=== PATIENT | female | born 1970 | race Caucasian/White ===

== ENCOUNTER 2023-07-06 14:28 | Emergency (ER) | payer OTHER, SELFPAY ==
--- NOTE | 2023-07-06 14:21 | ECG_ITS ---
APPROVED REPORT Exam: Resting ECG HR:77 bpm ECG Measurements Heart Rate 77 AXES ND 145 P 24 QRSd 77 QRS 5 QT 328 T 7 QTc 360 Conclusion SINUS RHYTHM LOW QRS VOLTAGE IN PRECORDIAL LEADS [QRS DEFLECTION < 1.0 mV IN CHEST LEADS] MINIMAL ST DEPRESSION [0.025+ mV ST DEPRESSION] BORDERLINE ECG UNCONFIRMED REPORT Electronically signed by : Dc Oates MD 07/06/2023 19:56:04
[2023-07-06 14:28] VITALS: BP 147/86; PULSE 78; RESP 19; TEMP 36.4; O2SAT 100; BMI 27.2
[2023-07-06] MEDS: NITROGLYCERIN 0.4MG SL TABLET 0.400000000000000022 MG SL (14:39)
[2023-07-06 14:42] VITALS: BMI 27.2
[2023-07-06 14:43] VITALS: PULSE 100
[2023-07-06] MEDS: ASPIRIN 81MG CHEWABLE TABLET 324 MG PO (14:45)
--- NOTE | 2023-07-06 15:05 | XR_ITS ---
FINAL REPORT TECHNIQUE: Single view chest CLINICAL HISTORY: dyspnea FINDINGS: A single view of the chest was obtained. The heart and mediastinum are within normal limits. The lungs are clear. There is no pneumothorax. Osseous structures are unremarkable. IMPRESSION: No acute cardiopulmonary process. Reviewed, Interpreted and Dictated by Chloe Godoy MD Transcribed by Constanza Morris Authenticated and [facility]
--- NOTE | 2023-07-06 15:06 | ED_ITS ---
Discharge Plan Disposition Patient Disposition: Home, Self-Care Prescriptions Prescriptions: New ondansetron 4 mg tablet,disintegrating 4 mg PO Q6H PRN (Reason: nausea and vomiting) 5 Days Qty: 20 0RF Referrals Follow up/Referrals: Jimenez Gonzalez MD [Staff Physician] - See instructions Provider,MD Grabiel [Primary Care Provider] - See instructions Activity Restrictions/Add. Instructions Additional Instructions/Restrictions: No emergent medical condition identified today please follow-up with Dr. Gonzalez regarding your chronic shortness of breath and chest discomfort. Clinical Impressions Clinical Impression: Chest pain, Nausea vomiting and diarrhea Discharge ED Provider: Mohan Carbone HPI <Gricel Martin MD - Last Filed: 07/06/23 15:53> General Chief Complaint: Chest Pain Stated Complaint: cp Time Seen by Provider: 07/06/23 14:58 Mode of Arrival: Ambulatory Source of Information: Patient Limitations: No Limitations Description of Symptoms (Recalled from ER Triage Doc. by RN): pt presents to ED with c/o chest pain, shortness of air, nausea, vomitting, weakness. pt reports symptoms began thursday morning. History of Present Illness HPI narrative: Patient is a 53-year-old female with no significant past medical problems presenting today with multiple complaints. States that on Thursday she started having nausea vomiting and diarrhea also has been having some chest discomfort this been constant since that time and some shortness of breath. Chest discomfort is described as a squeezing sensation that is been not intermittent and component nonexertional no diaphoresis associated with this no lower extremity swelling no history of DVT or PE no prolonged immobilizations no hemoptysis. The shortness of breath has been very mild and constant. She states this has been ongoing for several months she first noticed this while on vacation recently. No history of any cardiopulmonary disease that she is aware of. No history of smoking no wheezing cough she has had a subjective fever prior to today's evaluation but states that she felt like this went away no objective measurements. Related Data Previous Rx's Medication Instructions Recorded ondansetron 4 mg disintegrating 4 mg PO Q6H PRN nausea and 07/06/23 tablet vomiting 5 days #20 tabs Allergies Allergy/AdvReac Type Severity Reaction Status Date / Time INGREDIENT: NO KNOWN - NO Allergy Unknown Uncoded 04/28/17 15:42 KNOWN DRUG ALLERGY [facility] <Gricel Martin MD - Last Filed: 07/06/23 15:53> [facility] Disclaimer: The information contained in this section may have been updated after the patient was seen, as this information can be updated by other users. Social History (Updated 07/06/23 @ 15:53 by Gricel Martin MD) Smoking Status: Never smoker alcohol intake: never current occupational status: other Travel in the last 8 weeks: None <Gricel Martin MD - Last Filed: 07/06/23 15:53> ROS Obtained: Yes All systems reviewed & no additional complaints except as documented <Mohan Carbone MD - Last Filed: 07/07/23 20:52> As per HPI Physical Exam <Gricel Martin MD - Last Filed: 07/06/23 15:53> General General appearance: alert Respiratory Respiratory exam: Present normal lung sounds bilaterally; Absent respiratory distress Cardiovascular Cardiovascular exam: Present regular rate and normal rhythm Neurological Exam Neurological exam: Present alert and oriented X3 <Mohan Carbone MD - Last Filed: 07/07/23 20:52> Head Head exam: atraumatic and normocephalic Eye Eye exam: Present normal appearance Neck Neck exam: Present normal inspection Chest Chest inspection: Present normal inspection and symmetric chest wall rise Abdominal Exam Abdominal exam: Present soft Psychiatric Psychiatric exam: Present normal affect and normal mood Skin Skin exam: Present warm and dry HEART Score <Gricel Martin MD - Last Filed: 07/06/23 15:53> HEART Score HEART Score assessment performed?: Yes History (anamnesis): Slightly suspicious ECG: Normal Age: 45-65 years Risk factors: No known risk factors Troponin: </= normal limit HEART Score: 1 <Mohan Carbone MD - Last Filed: 07/07/23 20:52> HEART Score HEART Score: 1 Critical Care <Gricel Martin MD - Last Filed: 07/06/23 15:53> Critical Care Time Critical Care Time: No Medical Decision Making <Gricel Martin MD - Last Filed: 07/06/23 15:53> Jeovany Inquiry Pt receiving controlled substance: No Vital Signs Vital Signs: 07/06/23 14:28 07/06/23 14:43 07/06/23 15:59 Temperature 97.6 F 98.0 F Temperature Source Oral Pulse Rate 100 H 80 Pulse Rate [Left Radial] 78 Respiratory Rate 19 15 Blood Pressure 118/85 Blood Pressure [Right Arm] 147/86 H Blood Pressure Mean [Right Arm] 106 02 Sat by Pulse Oximetry 100 Oxygen Delivery Method Room Air Room Air Lab Data Lab results reviewed: Yes I reviewed the patient's lab results. Labs: Lab Results 07/06/23 14:34: WBC 6.8, RBC 4.81, Hgb 15.7, Hct 46.9, MCV 97.5, MCH 32.7 H, MCHC 33.5, RDW 13.1, Plt Count 236, MPV 8.0, Neut % (Auto) 61.4, Lymph % (Auto) 27.4, [place] % (Auto) 9.1, Eos % (Auto) 1.6, Baso % (Auto) 0.6, Neut # (Auto) 4.2, Lymph # (Auto) 1.9, [place] # (Auto) 0.6, Eos # (Auto) 0.1, Baso # (Auto) 0.0, D- Dimer 0.42, Sodium 140, Potassium 3.3 L, Chloride 101, Carbon Dioxide 32 H, Anion Gap 10.3, BUN 13, Creatinine 0.80, Estimated Creat Clear 80, Estimated GFR 76, Est GFR ( Amer) 92, Glucose 110 H, Calcium 9.6, Total Bilirubin 0.9, AST 47 H, ALT 39, Alkaline Phosphatase 99, Troponin I < 0.01, NT-Pro-B Natriuret Pep < 20.0, Total Protein 7.7, Albumin 4.4, Globulin 3.3 H, Albumin/Globulin Ratio 1.3 07/06/23 15:16: SARS-CoV-2 (PCR) Not detected, Influenza A Untype (PCR) Not detected, Influenza Type B (PCR) Not detected 07/06/23 14:34 07/06/23 14:34 Response Orders (Tests/Meds): ED MEDICATIONS Discontinued Medications Generic Name Dose Route Start Last Admin Trade Name Freq PRN Reason Stop Dose Admin Aspirin 324 mg 07/06/23 14:42 07/06/23 14:45 Aspirin 81mg Chewable Tablet PO 07/06/23 14:43 324 mg ONCE ONE Administration Lactated Ringer's 1,000 mls @ 999 mls/hr 07/06/23 15:15 07/06/23 15:11 Lactated Ringer's 1000 Ml Bag IV 07/06/23 16:15 999 mls/hr .Q1H1M GUMARO Administration Nitroglycerin 0.4 mg 07/06/23 14:42 07/06/23 14:39 Nitroglycerin 0.4mg Sl Tablet SL 08/05/23 14:41 0.4 mg Q5MINP PRN Administration Chest Pain Ondansetron HCl 4 mg 07/06/23 15:04 07/06/23 15:11 Ondansetron 4mg/2ml Vial IV 07/06/23 15:05 4 mg ONCE ONE Administration ORDERS Category Date Time Status CXR --portable [XR chest portable] Stat Exams 07/06/23 15:05 Completed BNP [Brain Natriuretic Peptide] Stat Lab 07/06/23 14:34 Completed CBC w/Auto Diff [Complete Blood Count Auto Diff] Stat Lab 07/06/23 14:34 Completed CMP [Comprehensive Metabolic Panel] Stat Lab 07/06/23 14:34 Completed D-Dimer Stat Lab 07/06/23 14:34 Completed Rapid PCR Covid and Flu A/B Stat Lab 07/06/23 15:16 Completed Trop I [Troponin I] Stat Lab 07/06/23 14:34 Completed ECG initial Besson Routine Y 07/06/23 14:21 Completed MDM Narrative Medical Decision Narrative: 53-year-old female with above history heart score is low she is very well on my clinical exam she has multiple complaints including nausea vomiting diarrhea chest pain shortness of breath. Will evaluate for possible cardiopulmonary emergency including acute coronary syndrome PE heart failure etc. will only require single troponin as she has had ongoing unchanged symptoms for several days at this point EKG is also nonischemic. Highly suspect this is not cardiac in nature. She did state after further questioning that she had had multiple episodes of near syncope. Is possible she is having arrhythmia associated with this discomfort we will have her follow-up outpatient for Holter monitor and possible evaluation for structural abnormalities including possibility of getting an echo and/or stress test given her chronic dyspnea and chest discomfort. Lastly with her nausea vomiting diarrhea and subjective fevers this is possible that this is viral in nature will check for COVID and flu give her IV fluids and Zofran and reassess. Chest x-ray performed in person interpreted shows no acute cardiopulmonary emergency Reassessment 3:52 PM labs unremarkable D-dimer below threshold for getting a CT PE troponin undetectably low she does have a mild hypokalemia which will be improved when she is having normal diet again. She was given a prescription of Zofran reassured that no cardiopulmonary emergency was ongoing. She is been advised to follow-up with cardiology for further outpatient testing. Return precautions emphasized she was discharged in improved and stable condition. <Mohan Carbone MD - Last Filed: 07/07/23 20:52> Vital Signs Vital Signs: 07/06/23 14:28 07/06/23 14:43 07/06/23 15:59 Temperature 97.6 F 98.0 F Temperature Source Oral Pulse Rate 100 H 80 Pulse Rate [Left Radial] 78 Respiratory Rate 19 15 Blood Pressure 118/85 Blood Pressure [Right Arm] 147/86 H Blood Pressure Mean [Right Arm] 106 02 Sat by Pulse Oximetry 100 Oxygen Delivery Method Room Air Room Air Lab Data Labs: Lab Results 07/06/23 14:34: WBC 6.8, RBC 4.81, Hgb 15.7, Hct 46.9, MCV 97.5, MCH 32.7 H, MCHC 33.5, RDW 13.1, Plt Count 236, MPV 8.0, Neut % (Auto) 61.4, Lymph % (Auto) 27.4, [place] % (Auto) 9.1, Eos % (Auto) 1.6, Baso % (Auto) 0.6, Neut # (Auto) 4.2, Lymph # (Auto) 1.9, [place] # (Auto) 0.6, Eos # (Auto) 0.1, Baso # (Auto) 0.0, D- Dimer 0.42, Sodium 140, Potassium 3.3 L, Chloride 101, Carbon Dioxide 32 H, Anion Gap 10.3, BUN 13, Creatinine 0.80, Estimated Creat Clear 80, Estimated GFR 76, Est GFR ( Amer) 92, Glucose 110 H, Calcium 9.6, Total Bilirubin 0.9, AST 47 H, ALT 39, Alkaline Phosphatase 99, Troponin I < 0.01, NT-Pro-B Natriuret Pep < 20.0, Total Protein 7.7, Albumin 4.4, Globulin 3.3 H, Albumin/Globulin Ratio 1.3 07/06/23 15:16: SARS-CoV-2 (PCR) Not detected, Influenza A Untype (PCR) Not detected, Influenza Type B (PCR) Not detected Response Orders (Tests/Meds): ED MEDICATIONS Discontinued Medications Generic Name Dose Route Start Last Admin Trade Name Freq PRN Reason Stop Dose Admin Aspirin 324 mg 07/06/23 14:42 07/06/23 14:45 Aspirin 81mg Chewable Tablet PO 07/06/23 14:43 324 mg ONCE ONE Administration Lactated Ringer's 1,000 mls @ 999 mls/hr 07/06/23 15:15 07/06/23 15:11 Lactated Ringer's 1000 Ml Bag IV 07/06/23 16:15 999 mls/hr .Q1H1M GUMARO Administration Nitroglycerin 0.4 mg 07/06/23 14:42 07/06/23 14:39 Nitroglycerin 0.4mg Sl Tablet SL 08/05/23 14:41 0.4 mg Q5MINP PRN Administration Chest Pain Ondansetron HCl 4 mg 07/06/23 15:04 07/06/23 15:11 Ondansetron 4mg/2ml Vial IV 07/06/23 15:05 4 mg ONCE ONE Administration ORDERS Category Date Time Status CXR --portable [XR chest portable] Stat Exams 07/06/23 15:05 Completed BNP [Brain Natriuretic Peptide] Stat Lab 07/06/23 14:34 Completed CBC w/Auto Diff [Complete Blood Count Auto Diff] Stat Lab 07/06/23 14:34 Completed CMP [Comprehensive Metabolic Panel] Stat Lab 07/06/23 14:34 Completed D-Dimer Stat Lab 07/06/23 14:34 Completed Rapid PCR Covid and Flu A/B Stat Lab 07/06/23 15:16 Completed Trop I [Troponin I] Stat Lab 07/06/23 14:34 Completed ECG initial Besson Routine Y 07/06/23 14:21 Completed
[2023-07-06] MEDS: ONDANSETRON 4MG/2ML VIAL 4 MG IV (15:11)
[2023-07-06] MEDS: LACTATED RINGERS 1000ML 1,000 ML 999 ML IV (15:11)
[2023-07-06 15:13] LABS: Basophils % 0.6 % (0.1-2.0); Eosinophils # 0.1 K/mm3 (0.0-0.4); Eosinophils % 1.6 % (0.1-12.0); Hematocrit 46.9 % (37.0-47.0); Hemoglobin 15.7 g/dL (12.2-16.2); Lymphocytes # 1.9 K/mm3 (0.7-4.5); Lymphocytes % 27.4 % (10-50); Mean Corpuscular HGB Conc 33.5 g/dL (31.8-35.4); Mean Corpuscular Hemoglobin 32.7 pg (27.0-31.2); Mean Corpuscular Volume 97.5 fl (81-99); Monocytes # 0.6 K/mm3 (0.1-1.0); Monocytes % 9.1 % (1.7-9.3); Neutrophils # 4.2 K/mm3 (1.8-7.8); Neutrophils % 61.4 % (37.0-80.0); Platelet Count 236 K/mm3 (142-424); Red Blood Count 4.81 M/mm3 (4.20-5.40); Red Cell Distribution Width 13.1 % (11.5-17.5); White Blood Count 6.8 K/mm3 (4.8-10.8)
[2023-07-06 15:16] LABS: Alanine Aminotransferase 39 U/L (12-78); Albumin Level 4.4 g/dl (3.5-5.0); Albumin/Globulin Ratio 1.3 (1.1-1.8); Alkaline Phosphatase 99 U/L (38-126); Anion Gap 10.3 mEq/L (5-15); Aspartate Amino Transferase 47 U/L (14-36); Bilirubin,Total 0.9 mg/dl (0.2-1.3); Blood Urea Nitrogen 13 mg/dl (7-17); Calcium 9.6 mg/dl (8.4-10.2); Carbon Dioxide 32 mmol/L (22.0-30.0); Chloride 101 mmol/L (98-107); Creatinine Clearance Estimated 80 mL/min (50-200); Estimated Glomerular Filt Rate 76 ml/min (>60); GFR (African American) 92 ML/MIN (>60); Globulin 3.3 g/dL (1.3-3.2); Glucose 110 mg/dl (74-100); Potassium 3.3 mmoL/L (3.5-5.1); Sodium 140 mmol/L (136-145); Total Protein,Serum 7.7 g/dl (6.3-8.2)
[2023-07-06 15:21] LABS: D-Dimer 0.42 ug/mL (0.0-0.5)
[2023-07-06 15:30] LABS: NT Pro Brain Natriuretic Pep. < 20.0 pg/mL (0-125); Troponin I < 0.01 ng/ml (0.00-0.034)
[2023-07-06 15:38] LABS: Coronavirus 19, PCR Not Detected (NotDetected); Influenza A, PCR Not Detected (NotDetected); Influenza B, PCR Not Detected (NotDetected)
[2023-07-06 15:59] VITALS: BP 118/85; PULSE 80; RESP 15; TEMP 36.7; O2SAT 95
== END 2023-07-06 16:04 | disposition home or self-care (01) ==
PROVIDERS: Student in an Organized Health Care Education/Training Program; Emergency Provider Emergency Medicine
DX: R07.9 Chest pain, unspecified (principal); R06.02 Shortness of breath; R11.2 Nausea with vomiting, unspecified; R53.1 Weakness; R19.7 Diarrhea, unspecified
CPT/HCPCS: 71045; 80053; 83880; 84484; 85025; 85378; 87636; 93005; 96361; 96374; 99285; J2405

== ENCOUNTER 2024-06-17 12:59 | Emergency (ER) | payer OTHER, SELFPAY ==
[2024-06-17 13:26] VITALS: BP 149/106; PULSE 86; RESP 16; TEMP 36.7; O2SAT 95; BMI 29.2
[2024-06-17 13:33] LABS: UTC Influenza A Antigen Positive (Negative); UTC Influenza B Antigen Negative (Negative)
--- NOTE | 2024-06-17 13:35 | ED_ITS ---
Discharge Plan Disposition Patient Disposition: Home, Self-Care Condition: Good Prescriptions Prescriptions: New benzonatate 100 mg capsule 100 mg PO TIDP PRN (Reason: Cough) Qty: 30 0RF ondansetron 4 mg Tablet,Disintegrating 4 mg PO Q8H PRN (Reason: Nausea) Qty: 12 0RF No Action ondansetron 4 mg tablet,disintegrating 4 mg PO Q6H PRN (Reason: nausea and vomiting) 5 Days Qty: 20 0RF Referrals Follow up/Referrals: Provider,Referral, MD [Primary Care Provider] - See instructions Activity Restrictions/Add. Instructions Additional Instructions/Restrictions: Drink plenty of fluids. Take tylenol or ibuprofen for pain or fever. Take the medications as directed. Follow up with your regular doctor. GO TO THE ER FOR ANY WORSENING SYMPTOMS Clinical Impressions Clinical Impression: Influenza A Stand Alone Forms Stand Alone Forms: Work/School Release Instructions Patient Instructions: Influenza, DI for Influenza -- Adult, Ondansetron, Benzonatate Print Language Print Language: Polish Discharge ED Provider: Samuel Cerda [facility] [facility] [place] General Stated complaint: dizzy lung pain headache nausea diarrhea Mode of Arrival: Ambulatory Source of Information: Patient Limitations: No Limitations Time Seen by Provider: 06/17/24 13:35 Description of Symptoms (Recalled from Triage Doc. by RN): Reports dizziness, diarrhea and fever. HEENT Symptoms (Recalled from RN notes): Yes Resp Symptoms (Recalled from RN notes): No Skin Symptoms (Recalled from RN notes): No MS Symptoms (Recalled from RN notes): Yes Functional Status (Recalled from RN notes): wnl Related Data Previous Rx's ?Medication ?Instructions ?Recorded ondansetron 4 mg disintegrating 4 mg PO Q6H PRN nausea and 07/06/23 tablet vomiting 5 days #20 tabs benzonatate 100 mg capsule 100 mg PO TIDP PRN Cough #30 caps 06/17/24 ondansetron 4 mg disintegrating 4 mg PO Q8H PRN Nausea #12 tabs 06/17/24 tablet Allergies Allergy/AdvReac Type Severity Reaction Status Date / Time INGREDIENT: NO KNOWN - NO Allergy Unknown Uncoded 04/28/17 15:42 KNOWN DRUG ALLERGY Worker's Comp Is this a Worker's Comp case?: No [facility] Disclaimer: The information contained in this section may have been updated after the patient was seen, as this information can be updated by other users. Social History (Updated 07/06/23 @ 15:53 by Gricel Martin MD) Smoking Status: Never smoker alcohol intake: never current occupational status: other Travel in the last 8 weeks: None Have you lived/traveled outside [place] in past 30 days?: No Contact w/someone who lives/traveled outside [place] past 30 days?: No Exposure to someone with infectious disease in past 14 days?: No Do you have a fever (greater than 100.4 F or 38 C)?: No Have you tested positive for COVID-19: No Exposed to someone with COVID-19 in past 14 days?: No Do you have a sore throat?: No Do you have a cough?: No Do you have any weakness?: No Do you have any diarrhea?: Yes Are you experiencing any unusual bleeding?: No Do you have any muscle aches/pain?: No Do you have any abdominal pain?: No Are you experiencing loss of taste or smell?: No ROS Obtained: Yes All systems reviewed & no additional complaints except as documented Constitutional Constitutional: Reports chills and Reports fever(s) Eyes Eyes: Denies eye discharge ENT Ears, Nose, Mouth, and Throat: Reports as per HPI Cardiovascular Cardiovascular: Denies chest pain Respiratory Respiratory: Denies chest congestion and Reports cough Gastrointestinal Gastrointestingal: Reports nausea; Denies abdominal pain, constipation, cramping, diarrhea or vomiting Musculoskeletal Musculoskeletal: Denies arthralgias Integumentary/Breasts Skin/Breast: Denies rash Neurologic Neurologic: Denies paresthesias Physical Exam General General appearance: alert and in no apparent distress Head Head exam: atraumatic, normocephalic and normal inspection Eye Eye exam: Present normal appearance, PERRL and EOMI ENT ENT exam: Present mucous membranes moist and normal external ear exam Expanded ENT Exam TM/Canal exam: Bilateral TM: erythema and bulging Nose exam: Absent sinus tenderness Mouth exam: Present normal external inspection; Absent drooling Teeth exam: Present normal inspection Throat exam: Present tonsillar erythema, tonsillomegaly and tonsillar exudate Neck Neck exam: Present normal inspection, full ROM and trachea midline; Absent tenderness, meningismus or lymphadenopathy Chest Chest inspection: Present normal inspection and symmetric chest wall rise; Absent tenderness Respiratory Respiratory exam: Present normal lung sounds bilaterally; Absent respiratory distress, wheezes, stridor or accessory muscle use Cardiovascular Cardiovascular exam: Present regular rate and normal rhythm; Absent systolic murmur or diastolic murmur Abdominal Exam Abdominal exam: Present soft and normal bowel sounds; Absent distention, tenderness, guarding, rebound or rigidity Extremities Exam Extremities exam: Present normal inspection and normal capillary refill; Absent calf tenderness Back Exam Back exam: Present normal inspection and full ROM; Absent tenderness, CVA tenderness (R) or CVA tenderness (L) Neurological Exam Neurological exam: Present alert, oriented X3 and CN II-XII intact Psychiatric Psychiatric exam: Present normal affect and normal mood Skin Skin exam: Present warm, dry, intact and normal color Medical Decision Making Medical Records Medical records reviewed: No I reviewed the patient's medical records. Screening: Per USPSTF and CDC recommendations, given the prevalence of disease in our region, it is our hospital?s policy to screen for HIV and viral Hepatitis for all patients aged 18 and over and those with ongoing risk factors. Jeovany Inquiry Pt receiving controlled substance: No Vital Signs: 06/17/24 13:26 Temperature 98.0 F Temperature Source Oral Pulse Rate [Radial] 86 Respiratory Rate 16 Blood Pressure [Right Arm] 149/106 H Blood Pressure Mean [Right Arm] 120 Blood Pressure Source [Right Arm] Automatic Cuff Blood Pressure Position [Right Arm] Sitting 02 Sat by Pulse Oximetry 95 Oxygen Delivery Method Room Air Lab Data Lab results reviewed: Yes I reviewed the patient's lab results. Lab Results 06/17/24 13:25: Influenza Type A Ag Positive A, Influenza Type B Ag Negative
[2024-06-17 14:18] VITALS: BP 149/106; PULSE 86; RESP 16; TEMP 36.7; O2SAT 95
== END 2024-06-17 14:19 | disposition home or self-care (01) ==
PROVIDERS: Emergency Provider Nurse Practitioner Family
DX: J09.X2 Influenza due to identified novel influenza A virus with other respiratory manifestations (principal)
CPT/HCPCS: 87804; 99212; G0381

== ENCOUNTER 2024-06-28 14:45 | Emergency (ER) | payer OTHER, SELFPAY ==
[2024-06-28] VITALS (12 sets, daily range): BP systolic 118–151; BP diastolic 72–92; PULSE 60–75; RESP 13–22; TEMP 36.6–37.2; O2SAT 97–100; BMI 30.2
[2024-06-28 15:30] LABS: Coronavirus 19, PCR Not Detected (NotDetected); Influenza A, PCR Not Detected (NotDetected); Influenza B, PCR Not Detected (NotDetected)
--- NOTE | 2024-06-28 15:32 | ECG_ITS ---
APPROVED REPORT Exam: Resting ECG HR:61 bpm ECG Measurements Heart Rate 61 AXES NM 153 P 13 QRSd 81 QRS 7 QT 412 T 28 QTc 415 Conclusion SINUS RHYTHM NORMAL ECG UNCONFIRMED REPORT Electronically signed by : VANIA AGUIRRE, 07/01/2024 00:01:16
--- NOTE | 2024-06-28 15:37 | HMH.EDGENADL ---
Discharge Plan Disposition Patient Disposition: Home, Self-Care Condition: Good Prescriptions Prescriptions: New meclizine 25 mg tablet 25 mg PO QID PRN (Reason: dizziness) Qty: 14 0RF No Action ondansetron 4 mg tablet,disintegrating 4 mg PO Q6H PRN (Reason: nausea and vomiting) 5 Days Qty: 20 0RF benzonatate 100 mg capsule 100 mg PO TIDP PRN (Reason: Cough) Qty: 30 0RF ondansetron 4 mg Tablet,Disintegrating 4 mg PO Q8H PRN (Reason: Nausea) Qty: 12 0RF Referrals Follow up/Referrals: Silvia Higgins APRN [Nurse Practitioner] - See instructions Provider,MD Grabiel [Primary Care Provider] - See instructions [place] Krishnamurthy MD [Staff Physician] - See instructions Activity Restrictions/Add. Instructions Additional Instructions/Restrictions: As we discussed I have referred you to both cardiology and ear nose and throat for further workup. I have sent meclizine into your pharmacy. Follow-up with your PCP within 48 hours for recheck. If you have any continuing new or worsening signs or symptoms follow-up sooner with your PCP return to the ER as needed. Clinical Impressions Clinical Impression: Dizziness Chest pain Qualifiers: Chest pain type: unspecified Qualified Code(s): R07.9 - Chest pain, unspecified Print Language Print Language: Burmese Discharge ED Provider: Dipak Blackwell General Adult HPI <ROBERTO Mayes - Last Filed: 06/28/24 22:16> General Chief complaint: Chest Pain Stated complaint: congestion, dizzy, heartburn, chest pressure Time Seen by Provider: 06/28/24 15:37 Mode of Arrival: Ambulatory Source of Information: Patient Limitations: No Limitations Description of Symptoms (Recalled from ER Triage Doc. by RN): Pt presents with c/o chest pressure, dizziness and heartburn since thursday. was flu+ 06-17-24 History of Present Illness HPI narrative: Patient presents for evaluation of chest pain and dizziness. Patient was diagnosed with the flu on 06/17/2024. She reports that since that diagnosis that she has had persistent dizziness. Patient awoke this morning however with chest pressure and heartburn throughout the night. She denies any fever chills shortness of breath hemoptysis hematochezia melena. She has nausea but no vomiting or diarrhea. She denies any focal neurologic deficits. There are no aggravating or relieving factors. Related Data Previous Rx's ?Medication ?Instructions ?Recorded ondansetron 4 mg disintegrating 4 mg PO Q6H PRN nausea and 07/06/23 tablet vomiting 5 days #20 tabs benzonatate 100 mg capsule 100 mg PO TIDP PRN Cough #30 caps 06/17/24 ondansetron 4 mg disintegrating 4 mg PO Q8H PRN Nausea #12 tabs 06/17/24 tablet meclizine 25 mg tablet 25 mg PO QID PRN dizziness #14 tabs 06/28/24 Allergies Allergy/AdvReac Type Severity Reaction Status Date / Time INGREDIENT: NO KNOWN - NO Allergy Unknown Uncoded 04/28/17 15:42 KNOWN DRUG ALLERGY PFSH <ROBERTO Mayes - Last Filed: 06/28/24 22:16> [facility] Disclaimer: The information contained in this section may have been updated after the patient was seen, as this information can be updated by other users. Social History (Updated 07/06/23 @ 15:53 by Gricel Martin MD) Smoking Status: Never smoker alcohol intake: never current occupational status: other Travel in the last 8 weeks: None Have you lived/traveled outside [place] in past 30 days?: No Contact w/someone who lives/traveled outside US past 30 days?: No Exposure to someone with infectious disease in past 14 days?: No Do you have a fever (greater than 100.4 F or 38 C)?: No Have you tested positive for COVID-19: No Exposed to someone with COVID-19 in past 14 days?: No Do you have a sore throat?: No Do you have a cough?: Yes Do you have any weakness?: Yes Do you have any diarrhea?: No Are you experiencing any unusual bleeding?: No Do you have any muscle aches/pain?: No Do you have any abdominal pain?: No Are you experiencing loss of taste or smell?: No Other Medical History Have you received the Flu Vaccine for this season: No Have you received the Pneumonia Vaccine: No <ROBERTO Mayes - Last Filed: 06/28/24 22:16> ROS Obtained: Yes Systems reviewed as appropriate & no additional complaints except as documented Physical Exam <ROBERTO Mayes - Last Filed: 06/28/24 22:16> General General appearance: alert and in no apparent distress Respiratory Respiratory exam: Present normal lung sounds bilaterally Cardiovascular Cardiovascular exam: Present regular rate and normal rhythm Neurological Exam Neurological exam: Present alert and oriented X3 Medical Decision Making <ROBERTO Mayes - Last Filed: 06/28/24 22:16> Medical Records Medical records reviewed: Yes I reviewed the patient's medical records. Screening: Per USPSTF and CDC recommendations, given the prevalence of disease in our region, it is our hospital?s policy to screen for HIV and viral Hepatitis for all patients aged 18 and over and those with ongoing risk factors. Jeovany Inquiry Pt receiving controlled substance: No Vital Signs: 06/28/24 15:04 06/28/24 15:07 06/28/24 15:48 Temperature 98.9 F Temperature Source Tympanic Pulse Rate 66 68 Pulse Rate [Right] 69 Respiratory Rate 18 22 Blood Pressure 135/83 139/87 Blood Pressure [Right Arm] 151/92 H Blood Pressure Mean [Right Arm] 111 Blood Pressure Source Blood Pressure Source [Right Arm] Automatic Cuff Blood Pressure Position Blood Pressure Position [Right Arm] Sitting 02 Sat by Pulse Oximetry 100 97 99 Oxygen Delivery Method Room Air Room Air 06/28/24 16:00 06/28/24 16:30 06/28/24 16:52 Temperature Temperature Source Pulse Rate 72 60 63 Pulse Rate [Right] Respiratory Rate 14 13 14 Blood Pressure 135/83 145/88 H 134/79 Blood Pressure [Right Arm] Blood Pressure Mean [Right Arm] Blood Pressure Source Blood Pressure Source [Right Arm] Blood Pressure Position Blood Pressure Position [Right Arm] 02 Sat by Pulse Oximetry 98 100 100 Oxygen Delivery Method Room Air Room Air Room Air 06/28/24 17:01 06/28/24 18:00 06/28/24 18:30 Temperature Temperature Source Pulse Rate 65 68 Pulse Rate [Right] Respiratory Rate 15 16 16 Blood Pressure 118/79 137/83 124/86 Blood Pressure [Right Arm] Blood Pressure Mean [Right Arm] Blood Pressure Source Blood Pressure Source [Right Arm] Blood Pressure Position Blood Pressure Position [Right Arm] 02 Sat by Pulse Oximetry 98 98 97 Oxygen Delivery Method Room Air Room Air Room Air 06/28/24 19:00 06/28/24 19:30 06/28/24 20:43 Temperature 97.9 F Temperature Source Oral Pulse Rate 70 75 72 Pulse Rate [Right] Respiratory Rate 14 14 16 Blood Pressure 127/85 124/86 128/72 Blood Pressure [Right Arm] Blood Pressure Mean [Right Arm] Blood Pressure Source Automatic Cuff Blood Pressure Source [Right Arm] Blood Pressure Position Supine Blood Pressure Position [Right Arm] 02 Sat by Pulse Oximetry 97 98 Oxygen Delivery Method Room Air Lab Data Lab results reviewed: Yes I reviewed the patient's lab results. Lab Results 06/28/24 15:24: SARS-CoV-2 (PCR) Not detected, Influenza A Untype (PCR) Not detected, Influenza Type B (PCR) Not detected 06/28/24 16:48: WBC 10.4, RBC 4.46, Hgb 13.7, Hct 40.6, MCV 91.0, MCH 30.7, MCHC 33.7, RDW 12.8, Plt Count 276, MPV 9.9, Neut % (Auto) 59.2, Lymph % (Auto) 30.2, [place] % (Auto) 8.3, Eos % (Auto) 0.9, Baso % (Auto) 0.5, Neut # (Auto) 6.1, Lymph # (Auto) 3.1, [place] # (Auto) 0.9, Eos # (Auto) 0.1, Baso # (Auto) 0.1, PT 9.5, INR 0.85 L, Sodium 137, Potassium 4.6, Chloride 103, Carbon Dioxide 30, Anion Gap 8.6, BUN 13, Creatinine 0.80, Estimated Creat Clear 88, Estimated GFR 75, Est GFR ( Amer) 91, Glucose 95, Calcium 9.4, Magnesium 2.1, Total Bilirubin 0.7, AST 61 H, ALT 46, Alkaline Phosphatase 111, Troponin I < 0.01, NT-Pro-B Natriuret Pep 25.0, Total Protein 7.4, Albumin 4.4, Globulin 3.0, Albumin/Globulin Ratio 1.5, Lipase 124, TSH 2.18, Free T4 Index 2.9 L, Thyroxine (T4) 8.5, T3 Uptake 34 06/28/24 19:22: Troponin I 0.02 06/28/24 20:13: Urine Color Yellow, Urine Appearance Clear, Urine pH 7.0, Ur Specific Butler 1.010, Urine Protein Negative, Urine Glucose (UA) Negative, Urine Ketones Negative, Urine Blood Negative, Urine Nitrate Negative, Urine Bilirubin Negative, Urine Urobilinogen 0.2, Ur Leukocyte Esterase Negative, Urine WBC Occasional, Ur Squamous Epith Cells Occasional, Urine Bacteria Trace 06/28/24 16:48 06/28/24 16:48 Orders (Tests/Meds): ED MEDICATIONS Discontinued Medications Generic Name Dose Route Start Last Admin Trade Name Andi PRN Reason Stop Dose Admin Lactated Ringer's 1,000 mls @ 999 mls/hr 06/28/24 16:04 06/28/24 16:31 Lactated Ringer's 1000 Ml Bag IV 06/28/24 17:04 999 mls/hr .Q1H1M ONE Administration Iopamidol 80 ml 06/28/24 17:26 06/28/24 17:27 Iopamidol-370 (76%);100ml Bottle IV 06/28/24 17:27 80 ml ONCE ONE Administration Meclizine HCl 50 mg 06/28/24 16:04 06/28/24 16:32 Meclizine 25mg Tablet PO 06/28/24 16:05 50 mg ONCE ONE Administration Sodium Chloride 10 ml 06/28/24 17:26 06/28/24 17:27 Sodium Chloride 0.9% 10ml Syr (Rad Only) IV 06/28/24 17:27 10 ml ONCE ONE Administration Sodium Chloride 50 ml 06/28/24 17:26 06/28/24 17:26 0.9 % Sodium Chloride 50 Ml Vial IV 06/28/24 17:27 50 ml ONCE ONE Administration ORDERS Category Date Time Status CT angio head Stat Cat Scan 06/28/24 17:[address] angio neck Stat Cat Scan 06/28/24 17:[address] head/brain wo con Stat Cat Scan 06/28/24 16:05 Completed BNP [NT Pro Brain Natriuretic Pep.] Stat Lab 06/28/24 16:48 Completed CBC w/Auto Diff [Complete Blood Count Auto Diff] Stat Lab 06/28/24 16:48 Completed CMP [Comprehensive Metabolic Panel] Stat Lab 06/28/24 16:48 Completed INR [Prothrombin Time INR] Stat Lab 06/28/24 16:48 Completed Lipase Stat Lab 06/28/24 16:48 Completed Magnesium Stat Lab 06/28/24 16:48 Completed Rapid PCR Covid and Flu A/B Stat Lab 06/28/24 15:24 Completed Thyroid Panel Stat Lab 06/28/24 16:48 Completed Trop I [Troponin I] Stat Lab 06/28/24 16:48 Completed Troponin I Q3H Lab 06/28/24 19:22 Completed UA [Urinalysis and Microscopic] Stat Lab 06/28/24 20:13 Completed HEART Score History (anamnesis): Slightly suspicious ECG: Normal Age: 45-65 years Risk factors: 1-2 risk factors Troponin: </= normal limit HEART Score: 2 Medical Decision Narrative: In summary patient is a 54-year-old female who presents to the emergency department for evaluation of chest pain and dizziness. Patient is hemodynamically stable upon arrival, afebrile. Physical exam is remarkable for a Charli Coma Score 15, cranial nerves II through XII intact grossly to exam, pupils equal round reactive to light, there is no nystagmus, there is no nuchal rigidity or meningeal signs, breath sounds are clear and equal bilaterally to the bases without adventitious sounds or increased work of breathing, there is no reproducible chest pain on exam, heart sounds are S1-S2 regular rate and rhythm without murmurs gallops rubs or thrills. Patient has no focal neurologic deficits and NIH stroke score 0. Bilateral tympanic membranes are normal. Posterior pharynx is normal.. Differential diagnosis includes vestibular disorder versus BPPV versus ACS versus pneumonia versus dehydration versus electrolyte abnormality etc. Initial workup will be conducted with hematologic labs twelve-lead EKG CT of the head without contrast CTA of the head and neck. Initial interventions include crystalloid bolus and meclizine. Initial workup reviewed by me shows that her hematologic labs are nonactionable initial troponin is undetectable urinalysis is bland COVID and flu swabs are negative and my informal interpretation of her imaging shows no evidence of intracranial abnormality or vascular stenosis or large vessel occlusion. Upon repeat evaluation patient reports that her dizziness still persists. Given this the patient was placed in observation status at 1800. Medical necessity for observational status is serial troponins. The patient was provided serial reevaluations continuous cardiac monitoring pulse oximetry neurochecks while awaiting results. Patient's second opponent remains undetectable. There remains diagnostic uncertainty due to her dizziness however we essentially have ruled out any serious or large threatening cause of her symptoms. Patient remains within a stroke score 0 and is ambulating without focal neurologic deficit. Given this patient is appropriate for discharge with follow-up for ear nose and throat to rule out peripheral causes of dizziness, referral to cardiology for further evaluation of her chest symptoms and close follow-up with her PCP for further workup and care within 48 hours. Total time in observation was 2 hours 30 minutes. <Dipak Blackwell MD - Last Filed: 06/29/24 15:56> Vital Signs: 06/28/24 15:04 06/28/24 15:07 06/28/24 15:48 Temperature 98.9 F Temperature Source Tympanic Pulse Rate 66 68 Pulse Rate [Right] 69 Respiratory Rate 18 22 Blood Pressure 135/83 139/87 Blood Pressure [Right Arm] 151/92 H Blood Pressure Mean [Right Arm] 111 Blood Pressure Source Blood Pressure Source [Right Arm] Automatic Cuff Blood Pressure Position Blood Pressure Position [Right Arm] Sitting 02 Sat by Pulse Oximetry 100 97 99 Oxygen Delivery Method Room Air Room Air 06/28/24 16:00 06/28/24 16:30 06/28/24 16:52 Temperature Temperature Source Pulse Rate 72 60 63 Pulse Rate [Right] Respiratory Rate 14 13 14 Blood Pressure 135/83 145/88 H 134/79 Blood Pressure [Right Arm] Blood Pressure Mean [Right Arm] Blood Pressure Source Blood Pressure Source [Right Arm] Blood Pressure Position Blood Pressure Position [Right Arm] 02 Sat by Pulse Oximetry 98 100 100 Oxygen Delivery Method Room Air Room Air Room Air 06/28/24 17:01 06/28/24 18:00 06/28/24 18:30 Temperature Temperature Source Pulse Rate 65 68 Pulse Rate [Right] Respiratory Rate 15 16 16 Blood Pressure 118/79 137/83 124/86 Blood Pressure [Right Arm] Blood Pressure Mean [Right Arm] Blood Pressure Source Blood Pressure Source [Right Arm] Blood Pressure Position Blood Pressure Position [Right Arm] 02 Sat by Pulse Oximetry 98 98 97 Oxygen Delivery Method Room Air Room Air Room Air 06/28/24 19:00 06/28/24 19:30 06/28/24 20:43 Temperature 97.9 F Temperature Source Oral Pulse Rate 70 75 72 Pulse Rate [Right] Respiratory Rate 14 14 16 Blood Pressure 127/85 124/86 128/72 Blood Pressure [Right Arm] Blood Pressure Mean [Right Arm] Blood Pressure Source Automatic Cuff Blood Pressure Source [Right Arm] Blood Pressure Position Supine Blood Pressure Position [Right Arm] 02 Sat by Pulse Oximetry 97 98 Oxygen Delivery Method Room Air Lab Data Lab Results 06/28/24 15:24: SARS-CoV-2 (PCR) Not detected, Influenza A Untype (PCR) Not detected, Influenza Type B (PCR) Not detected 06/28/24 16:48: WBC 10.4, RBC 4.46, Hgb 13.7, Hct 40.6, MCV 91.0, MCH 30.7, MCHC 33.7, RDW 12.8, Plt Count 276, MPV 9.9, Neut % (Auto) 59.2, Lymph % (Auto) 30.2, [place] % (Auto) 8.3, Eos % (Auto) 0.9, Baso % (Auto) 0.5, Neut # (Auto) 6.1, Lymph # (Auto) 3.1, [place] # (Auto) 0.9, Eos # (Auto) 0.1, Baso # (Auto) 0.1, PT 9.5, INR 0.85 L, Sodium 137, Potassium 4.6, Chloride 103, Carbon Dioxide 30, Anion Gap 8.6, BUN 13, Creatinine 0.80, Estimated Creat Clear 88, Estimated GFR 75, Est GFR ( Amer) 91, Glucose 95, Calcium 9.4, Magnesium 2.1, Total Bilirubin 0.7, AST 61 H, ALT 46, Alkaline Phosphatase 111, Troponin I < 0.01, NT-Pro-B Natriuret Pep 25.0, Total Protein 7.4, Albumin 4.4, Globulin 3.0, Albumin/Globulin Ratio 1.5, Lipase 124, TSH 2.18, Free T4 Index 2.9 L, Thyroxine (T4) 8.5, T3 Uptake 34 06/28/24 19:22: Troponin I 0.02 06/28/24 20:13: Urine Color Yellow, Urine Appearance Clear, Urine pH 7.0, Ur Specific [place] 1.010, Urine Protein Negative, Urine Glucose (UA) Negative, Urine Ketones Negative, Urine Blood Negative, Urine Nitrate Negative, Urine Bilirubin Negative, Urine Urobilinogen 0.2, Ur Leukocyte Esterase Negative, Urine WBC Occasional, Ur Squamous Epith Cells Occasional, Urine Bacteria Trace Orders (Tests/Meds): ED MEDICATIONS Discontinued Medications Generic Name Dose Route Start Last Admin Trade Name Freq PRN Reason Stop Dose Admin Lactated Ringer's 1,000 mls @ 999 mls/hr 06/28/24 16:04 06/28/24 16:31 Lactated Ringer's 1000 Ml Bag IV 06/28/24 17:04 999 mls/hr .Q1H1M ONE Administration Iopamidol 80 ml 06/28/24 17:26 06/28/24 17:27 Iopamidol-370 (76%);100ml Bottle IV 06/28/24 17:27 80 ml ONCE ONE Administration Meclizine HCl 50 mg 06/28/24 16:04 06/28/24 16:32 Meclizine 25mg Tablet PO 06/28/24 16:05 50 mg ONCE ONE Administration Sodium Chloride 10 ml 06/28/24 17:26 06/28/24 17:27 Sodium Chloride 0.9% 10ml Syr (Rad Only) IV 06/28/24 17:27 10 ml ONCE ONE Administration Sodium Chloride 50 ml 06/28/24 17:26 06/28/24 17:26 0.9 % Sodium Chloride 50 Ml Vial IV 06/28/24 17:27 50 ml ONCE ONE Administration ORDERS Category Date Time Status CT angio head Stat Cat Scan 06/28/24 17:[address] angio neck Stat Cat Scan 06/28/24 17:[address] head/brain wo con Stat Cat Scan 06/28/24 16:05 Completed BNP [NT Pro Brain Natriuretic Pep.] Stat Lab 06/28/24 16:48 Completed CBC w/Auto Diff [Complete Blood Count Auto Diff] Stat Lab 06/28/24 16:48 Completed CMP [Comprehensive Metabolic Panel] Stat Lab 06/28/24 16:48 Completed INR [Prothrombin Time INR] Stat Lab 06/28/24 16:48 Completed Lipase Stat Lab 06/28/24 16:48 Completed Magnesium Stat Lab 06/28/24 16:48 Completed Rapid PCR Covid and Flu A/B Stat Lab 06/28/24 15:24 Completed Thyroid Panel Stat Lab 06/28/24 16:48 Completed Trop I [Troponin I] Stat Lab 06/28/24 16:48 Completed Troponin I Q3H Lab 06/28/24 19:22 Completed UA [Urinalysis and Microscopic] Stat Lab 06/28/24 20:13 Completed ECG Data Tracing #1: I reviewed this ECG and interpreted as documented below: (Sinus rhythm 61 bpm with VA interval 153, QRS 81, QTc 415. Normal axis and no acute ischemic change.) HEART Score HEART Score: 2 Medical Decision Narrative: In summary patient is a 54-year-old female who presents to the emergency department for evaluation of chest pain and dizziness. Patient is hemodynamically stable upon arrival, afebrile. Physical exam is remarkable for a Horton Coma Score 15, cranial nerves II through XII intact grossly to exam, pupils equal round reactive to light, there is no nystagmus, there is no nuchal rigidity or meningeal signs, breath sounds are clear and equal bilaterally to the bases without adventitious sounds or increased work of breathing, there is no reproducible chest pain on exam, heart sounds are S1-S2 regular rate and rhythm without murmurs gallops rubs or thrills. Patient has no focal neurologic deficits and NIH stroke score 0. Bilateral tympanic membranes are normal. Posterior pharynx is normal.. Differential diagnosis includes vestibular disorder versus BPPV versus ACS versus pneumonia versus dehydration versus electrolyte abnormality etc. Initial workup will be conducted with hematologic labs twelve-lead EKG CT of the head without contrast CTA of the head and neck. Initial interventions include crystalloid bolus and meclizine. Initial workup reviewed by me shows that her hematologic labs are nonactionable initial troponin is undetectable urinalysis is bland COVID and flu swabs are negative and my informal interpretation of her imaging shows no evidence of intracranial abnormality or vascular stenosis or large vessel occlusion. Upon repeat evaluation patient reports that her dizziness still persists. Given this the patient was placed in observation status at 1800. Medical necessity for observational status is serial troponins. The patient was provided serial reevaluations continuous cardiac monitoring pulse oximetry neurochecks while awaiting results. Patient's second opponent remains undetectable. There remains diagnostic uncertainty due to her dizziness however we essentially have ruled out any serious or large threatening cause of her symptoms. Patient remains within a stroke score 0 and is ambulating without focal neurologic deficit. Given this patient is appropriate for discharge with follow-up for ear nose and throat to rule out peripheral causes of dizziness, referral to cardiology for further evaluation of her chest symptoms and close follow-up with her PCP for further workup and care within 48 hours. Total time in observation was 2 hours 30 minutes. I was consulted by the ALINA, and we discussed the complexity of the problems being addressed. I approved the treatment and management plan for this patient's care in the Emergency Department, thus performing a substantive portion of the medical decision making. Dipak Blackwell MD Critical Care <ROBERTO Mayes - Last Filed: 06/28/24 22:16> Critical Care Time Critical Care Time: No
--- NOTE | 2024-06-28 16:05 | CT_ITS ---
PROCEDURE INFORMATION: Exam: CT Head Without Contrast Exam date and time: 06/28/2024 5:26 PM Age: 54 years old Clinical indication: Dizziness TECHNIQUE: Imaging protocol: Computed tomography of the head without contrast. Radiation optimization: All CT scans at this facility use at least one of these dose optimization techniques: automated exposure control; mA and/or kV adjustment per patient size (includes targeted exams where dose is matched to clinical indication); or iterative reconstruction. COMPARISON: CT HEAD/BRAIN WO CON 06/28/2024 5:26 PM FINDINGS: Brain: Normal. No hemorrhage. Unremarkable white matter. No mass effect. Cerebral ventricles: No ventriculomegaly. Paranasal sinuses: Visualized sinuses are unremarkable. No fluid levels. Mastoid air cells: Visualized mastoid air cells are well aerated. Bones: Unremarkable. No acute fracture. Soft tissues: Unremarkable. IMPRESSION: No acute intracranial abnormality.
--- NOTE | 2024-06-28 16:10 | PC.NURSE ---
Having difficulty obtaining lab and an IV. Dr. Blackwell & ALINA aware. 3x staff members have attempted multiple sticks.
--- NOTE | 2024-06-28 16:15 | PC.NURSE ---
Patient states she doesnt need anything at this time. call light is in reach.
[2024-06-28] MEDS: LACTATED RINGERS 1000ML 1,000 ML 999 ML IV (16:31)
--- NOTE | 2024-06-28 16:31 | PC.NURSE ---
Dr Blackwell at bedside for USGIV
[2024-06-28] MEDS: MECLIZINE 25MG TABLET 50 MG PO (16:32)
[2024-06-28 16:57] LABS: Basophils # 0.1 K/mm3 (0-0.2); Basophils % 0.5 % (0.1-2.0); Eosinophils # 0.1 K/mm3 (0.0-0.4); Eosinophils % 0.9 % (0.1-12.0); Hematocrit 40.6 % (37.0-47.0); Hemoglobin 13.7 g/dL (12.2-16.2); Lymphocytes # 3.1 K/mm3 (0.7-4.5); Lymphocytes % 30.2 % (10-50); Mean Corpuscular HGB Conc 33.7 g/dL (31.8-35.4); Mean Corpuscular Hemoglobin 30.7 pg (27.0-31.2); Mean Platelet Volume 9.9 fl (7.4-10.4); Monocytes # 0.9 K/mm3 (0.1-1.0); Monocytes % 8.3 % (1.7-9.3); Neutrophils # 6.1 K/mm3 (1.8-7.8); Neutrophils % 59.2 % (37.0-80.0); Platelet Count 276 K/mm3 (142-424); Red Blood Count 4.46 M/mm3 (4.20-5.40); Red Cell Distribution Width 12.8 % (11.5-17.5); White Blood Count 10.4 K/mm3 (4.8-10.8)
[2024-06-28 17:04] LABS: Albumin Level 4.4 g/dl (3.5-5.0); Chloride 103 mmol/L (98-107)
[2024-06-28 17:05] LABS: Potassium 4.6 mmoL/L (3.5-5.1); Sodium 137 mmol/L (136-145)
[2024-06-28 17:07] LABS: Alanine Aminotransferase 46 U/L (12-78); Albumin/Globulin Ratio 1.5 (1.1-1.8); Alkaline Phosphatase 111 U/L (38-126); Anion Gap 8.6 mEq/L (5-15); Aspartate Amino Transferase 61 U/L (14-36); Bilirubin,Total 0.7 mg/dl (0.2-1.3); Blood Urea Nitrogen 13 mg/dl (7-17); Calcium 9.4 mg/dl (8.4-10.2); Carbon Dioxide 30 mmol/L (22.0-30.0); Creatinine Clearance Estimated 88 mL/min (50-200); Estimated Glomerular Filt Rate 75 ml/min (>60); GFR (African American) 91 ML/MIN (>60); Glucose 95 mg/dl (74-100); Lipase 124 U/L (23-300); Total Protein,Serum 7.4 g/dl (6.3-8.2)
--- NOTE | 2024-06-28 17:07 | CT_ITS ---
PROCEDURE INFORMATION: Exam: CTA Neck With Contrast Exam date and time: 06/28/2024 5:28 PM Age: 54 years old Clinical indication: Dizziness and giddiness TECHNIQUE: Imaging protocol: Computed tomographic angiography of the neck with contrast. Exam focused on the cervical segments of the vasculature. 3D rendering (Not supervised by radiologist): MIP and/or 3D reconstructed images were created by the technologist. Radiation optimization: All CT scans at this facility use at least one of these dose optimization techniques: automated exposure control; mA and/or kV adjustment per patient size (includes targeted exams where dose is matched to clinical indication); or iterative reconstruction. Contrast material: ISO 370; Contrast volume: 80 ml; Contrast route: INTRAVENOUS (IV); COMPARISON: CT ANGIO HEAD 06/28/2024 5:28 PM FINDINGS: Right common carotid artery: The right common carotid artery shows no evidence of significant stenosis. Right internal carotid artery: The right internal carotid artery shows no evidence of significant stenosis. Right external carotid artery: The right external carotid artery shows no evidence of significant stenosis. Left common carotid artery: The left common carotid artery shows no evidence of significant stenosis. Left internal carotid artery: The left internal carotid artery shows no evidence of significant stenosis. Left external carotid artery: The left external carotid artery shows no evidence of significant stenosis. Right vertebral artery: Right vertebral artery is patent and without stenosis or occlusion. Left vertebral artery: Left vertebral artery arises directly from the aortic arch, a normal variant. 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 Thyroid: The thyroid gland is normal. Soft tissues: No acute soft tissue findings. Bones/joints: No acute skeletal abnormality or aggressive osseous lesion. Trachea: Airways are patent. Lungs: No acute findings in the lung apices. IMPRESSION: No stenosis or occlusion. REFERENCES: NASCET CRITERIA. The degree of stenosis in the cervical segment of the internal carotid artery is based on NASCET criteria. Normal is no stenosis. Mild is less than 50% stenosis. Moderate is 50-69% stenosis. Severe is 70% to 99% stenosis. Total occlusion is no detectable patent lumen.
--- NOTE | 2024-06-28 17:07 | CT_ITS ---
PROCEDURE INFORMATION: Exam: CTA Head With Contrast, Arteriography Exam date and time: 06/28/2024 5:28 PM Age: 54 years old Clinical indication: Dizziness and giddiness TECHNIQUE: Imaging protocol: Computed tomographic angiography of the head with contrast. Exam focused on the arteries. 3D rendering (Not supervised by radiologist): MIP and/or 3D reconstructed images were created by the technologist. Radiation optimization: All CT scans at this facility use at least one of these dose optimization techniques: automated exposure control; mA and/or kV adjustment per patient size (includes targeted exams where dose is matched to clinical indication); or iterative reconstruction. Contrast material: ISO 370; Contrast volume: 80 ml; Contrast route: INTRAVENOUS (IV); COMPARISON: CT HEAD/BRAIN WO CON 06/28/2024 5:26 PM FINDINGS: ANTERIOR CIRCULATION: Right internal carotid artery: The right internal carotid artery shows no evidence of significant stenosis. Right middle cerebral artery: Right middle cerebral artery is patent and without stenosis or occlusion. Right anterior cerebral artery: Right anterior cerebral artery is patent and without stenosis or occlusion. Left internal carotid artery: The left internal carotid artery shows no evidence of significant stenosis. Left middle cerebral artery: Left middle cerebral artery is patent and without stenosis or occlusion. Left anterior cerebral artery: Left anterior cerebral artery is patent and without stenosis or occlusion. POSTERIOR CIRCULATION: Right vertebral artery: Right vertebral artery is patent and without stenosis or occlusion. Left vertebral artery: Left vertebral artery is patent and without stenosis or occlusion. Basilar artery: Basilar artery is patent and without stenosis or occlusion. Right posterior cerebral artery: Right posterior cerebral artery is patent and without stenosis or occlusion. Left posterior cerebral artery: Left posterior cerebral artery is patent and without stenosis or occlusion. Brain: No definite mass, mass effect, or midline shift. Cerebral ventricles: No ventriculomegaly. Paranasal sinuses: Mucosal thickening of the inferior bilateral maxillary sinuses, favoring chronic sinusitis. Bones/joints: Unremarkable. No acute fracture. Soft tissues: Unremarkable. IMPRESSION: No large vessel stenosis or occlusion.
[2024-06-28 17:08] LABS: Magnesium 2.1 mg/dl (1.6-2.3)
--- NOTE | 2024-06-28 17:08 | PC.NURSE ---
PT TO CT
[2024-06-28 17:12] LABS: INR 0.85 (0.9-1.1); Prothrombin Time 9.5 seconds (9.2-12.1)
[2024-06-28] MEDS: 0.9 % SODIUM CHLORIDE 50 ML VIAL IV (17:26)
[2024-06-28] MEDS: SODIUM CHLORIDE 0.9% 10ML SYR (RAD ONLY) 10 ML IV (17:27)
[2024-06-28] MEDS: IOPAMIDOL-370 (76%);100ML BOTTLE 80 ML IV (17:27)
[2024-06-28 17:28] LABS: Troponin I < 0.01 ng/ml (0.00-0.034)
[2024-06-28 17:37] LABS: Free Thyroxine Index 2.9 ug/dL (5.93-13.13); T4 (Thyroxine) 8.5 ug/dl (5.53-11.0); Triiodothryronine (T3) Uptake 34 % (23.5-40.5)
[2024-06-28 17:51] LABS: Thyroid Stimulating Hormone 2.18 uIU/mL (0.465-4.68)
--- NOTE | 2024-06-28 18:55 | PC.NURSE ---
ROUNDED ON THE PT. THE PT VOICES THAT SHE DOES NOT NEED ANYTHING AT THIS TIME. CALL LIGHT IS WITHIN REACH OF THE PT.
--- NOTE | 2024-06-28 19:35 | PC.NURSE ---
ROUNDING COMPLETE: NO NEEDS AT THIS TIME
[2024-06-28 19:57] LABS: Troponin I 0.02 ng/ml (0.00-0.034)
--- NOTE | 2024-06-28 20:05 | PC.NURSE ---
ROUNDING DONE; NO NEEDS
[2024-06-28 20:19] LABS: Microscopic, Urine URINE MICROSCOPIC (MICROSCOPIC)
[2024-06-28 20:40] LABS: Appearance,Urine CLEAR (Clear); Bilirubin,Urine Negative (Negative); Blood, Urine Negative (Negative); Color,Urine YELLOW (Yellow); Glucose,Urine (UA) Negative (Negative); Ketones,Urine Negative (Negative); Leukocyte Esterase,Urine Negative (Negative); Nitrate,Urine Negative (Negative); Protein,Urine Negative (Negative); Urobilinogen,Urine 0.2 EU/dl (0.2)
--- NOTE | 2024-06-28 20:43 | PC.NURSE ---
IV removed. Catheter tip intact. Bleeding controlled.
[2024-06-28 20:52] LABS: Bacteria,Urine Trace /lpf; Squamous Epithelial Cell,Urine Occasional #/hpf (0-5); WBC,Urine Occasional #/hpf (0-3)
== END 2024-06-28 20:44 | disposition home or self-care (01) ==
PROVIDERS: Physician Assistant; Emergency Provider Emergency Medicine
DX: R07.9 Chest pain, unspecified (principal); R42 Dizziness and giddiness; R12 Heartburn; R11.0 Nausea
CPT/HCPCS: 70450; 70496; 70498; 80053; 81001; 83690; 83735; 83880; 84436; 84443; 84479; 84484; 85025; 85610; 87636; 93005; 96360; 99285; J7120; Q9967

== ENCOUNTER 2024-07-05 09:07 | Outpatient (CLI) | payer OTHER, SELFPAY ==
[2024-07-05 09:48] LABS: D-Dimer 0.25 ug/mL (0.0-0.5)
[2024-07-05 10:22] LABS: Chol/HDL Ratio 10.8 (1-3.5); Cholesterol 291 mg/dl (140-200); HDL Cholesterol 27 mg/dl (40-60); Triglycerides 325 mg/dl (30-150); VLDL Cholesterol 65 mg/dL (0-40)
[2024-07-05 10:33] LABS: Direct LDL Cholesterol 181.49 mg/dL (100-129)
== END 2024-07-05 23:59 | disposition home or self-care (01) ==
PROVIDERS: PCP Family Medicine; Visit Provider Nurse Practitioner
DX: R00.2 Palpitations (principal); Z82.49 Family history of ischemic heart disease and other diseases of the circulatory system; R53.83 Other fatigue; R94.31 Abnormal electrocardiogram [ECG] [EKG]; R07.9 Chest pain, unspecified; R42 Dizziness and giddiness
CPT/HCPCS: 36415; 80061; 85378; 93270

== ENCOUNTER 2024-07-21 10:49 | Outpatient (CLI) | payer OTHER, SELFPAY ==
[2024-07-21] MEDS: SODIUM CHLORIDE 0.9% 10ML SYR (RAD ONLY) 10 ML IV ×2 (14:07)
[2024-07-21] MEDS: ISOTOPE MYOVIEW (PER STUDY) 1 DOSE IV (14:07)
== END 2024-07-21 23:59 | disposition home or self-care (01) ==
LOC: RAD 10:50
PROVIDERS: PCP Family Medicine; Visit Provider Nurse Practitioner
DX: R00.2 Palpitations (principal); R07.9 Chest pain, unspecified; R42 Dizziness and giddiness
CPT/HCPCS: 78452; 93017; 93018; 93306; A9502

== ENCOUNTER 2024-08-19 08:06 | Outpatient (CLI) | payer OTHER, SELFPAY ==
--- NOTE | 2024-08-19 08:09 | XR_ITS ---
FINAL REPORT CLINICAL HISTORY: cough, soa for 1 week, dx with bronchitis FINDINGS: No acute pulmonary density is evident. There is no evidence of effusion or other pleural disease. The mediastinum has a normal appearance. The cardiac silhouette is unremarkable. IMPRESSION: Unremarkable chest exam. Reviewed, Interpreted and Dictated by Nayely Hudson MD Transcribed by Bianca Flood Authenticated and [facility]
== END 2024-08-19 23:59 | disposition home or self-care (01) ==
LOC: RAD 08:07
PROVIDERS: PCP Family Medicine; Visit Provider Student in an Organized Health Care Education/Training Program
DX: R05.9 Cough, unspecified (principal)
CPT/HCPCS: 71046